=== PATIENT | male | born 1975 | race African-American/Black ===

== ENCOUNTER 2018-11-06 10:42 | Emergency (ER) | payer OTHER ==
[~2018-11-06] VITALS: Ht 172.7 cm; Wt 73.0 kg
[2018-11-06] MEDS ORDERED: ACETAMINOPHEN 325MG TABLET PO ONE (11:45)
[2018-11-06] MEDS ORDERED: IBUPROFEN 600MG TABLET PO ONE (11:45)
[2018-11-06 11:48] VITALS: BP 116/82
== END 2018-11-06 13:45 | disposition home or self-care (01) ==
LOC: ER 10:42
DX: S61.302A Unspecified open wound of right middle finger with damage to nail, initial encounter (principal); F17.200 Nicotine dependence, unspecified, uncomplicated; W22.8XXA Striking against or struck by other objects, initial encounter; Y93.89 Activity, other specified; Y92.89 Other specified places as the place of occurrence of the external cause; Y99.8 Other external cause status
CPT/HCPCS: 73140; 99283